=== PATIENT | male | born 1975 | race Caucasian/White ===

== ENCOUNTER → 2017-06-23 | Outpatient (CLI) | payer OTHER ==
--- NOTE | 2017-06-23 07:58 | DIAGNOSTIC IMAGING REPORT ---
ABD/PELVIS COMBO WITH ORAL HISTORY: 42 years-old Male R31.0 Gross [id number] acute hematuria COMPARISON: None available TECHNIQUE: Multiple axial CT images of the abdomen and pelvis were obtained following the administration of oral and IV contrast utilizing hematuria protocol. Delayed postcontrast images were obtained. A dose lowering technique was used consistent with the principals of RONNY. FINDINGS: Mild dependent subsegmental bibasilar atelectasis. Calcified granuloma of the right middle lobe also noted. Punctate calcified granuloma of the inferior segment lingula. No pneumatosis or pneumoperitoneum. Imaged inferior cardiac chambers are unremarkable. Gallbladder, liver, spleen, pancreas and right adrenal gland are unremarkable. 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 The noncontrast study demonstrates no renal or ureteral calculi. Calcifications of the central prostate are noted. Postcontrast image demonstrates no ureteral or collecting system filling defects. No obstructive uropathy. Portions of the left ureter are not well opacified and therefore difficult to evaluate. The urinary bladder appears to be within normal limits. Minimal calcification of the aorta without aneurysm. No bulky adenopathy identified. No bowel obstruction or focal bowel wall thickening. There is moderate volume of formed stool throughout the colon. Normal appendix. Soft tissues are unremarkable. Bones appear intact. Chronic bilateral pars defects at L5 with 10 mm anterolisthesis L5 on S1. Moderate intervertebral disc space narrowing with circumferential disc osteophyte complex formation at L5-S1. IMPRESSION: 1. No nephrolithiasis, ureteral calculi or obstructive uropathy identified. 2. Moderate stool volume suggests constipation. 3. Prior granulomatous disease. 4. Normal appendix. 5. Chronic bilateral pars defects at L5 with 10 mm anterolisthesis L5 on S1. The above report was generated using voice recognition software. It may contain grammatical, syntax or spelling errors. Electronically signed by: Baldo Foley M.D. 06/23/2017 7:56 AM Dictated Date/Time: 06/23/2017 7:50 AM
== END | disposition home or self-care (01) ==
LOC: C.CTS 05:13
PROVIDERS: ATTEND Urology
DX: R31.0 Gross hematuria (principal)